=== PATIENT | female | born 2005 | race Two or more races ===

== ENCOUNTER 2025-03-07 03:26 | Emergency (ER) | payer OTHER ==
[~2025-03-07] VITALS: Ht 167.6 cm; Wt 49.9 kg
[2025-03-07] MEDS ORDERED: LIDOCAINE VISCOUS 2% UD 15 ML UDC ONE (06:23)
[2025-03-07] MEDS ORDERED: TDAP [DIPH/PERTUSSIS/TET] 0.5 ML VIAL IM ONE (06:24)
[2025-03-07] MEDS: TDAP [DIPH/PERTUSSIS/TET] 0.5 ML VIAL IM ONE (06:30)
[2025-03-07] MEDS ORDERED: LIDOCAINE 1%-EPI 1:100,000 50 ML VIAL IJ ONE (06:30)
[2025-03-07] MEDS: LIDOCAINE VISCOUS 2% UD 15 ML UDC MM ONE (06:31)
[2025-03-07 07:48] VITALS: BP 130/81; TEMP 98.5; O2SAT 99
== END 2025-03-07 07:48 | disposition home or self-care (01) ==
LOC: ER 03:35
DX: S01.511A Laceration without foreign body of lip, initial encounter (principal); Y04.0XXA Assault by unarmed brawl or fight, initial encounter; Y93.89 Activity, other specified; Y92.89 Other specified places as the place of occurrence of the external cause; Y99.9 Unspecified external cause status
CPT/HCPCS: 12011; 90471; 90715; 99283; J3490

== ENCOUNTER 2025-03-22 19:29 | Emergency (ER) | payer OTHER | END 2025-03-22 20:32 | disposition left against medical advice (07) | LOC: ER 19:33 | DX: Z48.02 Encounter for removal of sutures (principal); Z53.21 Procedure and treatment not carried out due to patient leaving prior to being seen by health care provider ==

== ENCOUNTER 2025-03-23 03:42 | Emergency (ER) | payer OTHER ==
[~2025-03-23] VITALS: Ht 167.6 cm; Wt 52.2 kg
[2025-03-23 03:50] VITALS: BP 113/74; TEMP 98.6; O2SAT 98
== END 2025-03-23 04:21 | disposition home or self-care (01) ==
LOC: ER 03:42
DX: S01.511D Laceration without foreign body of lip, subsequent encounter (principal); Z48.02 Encounter for removal of sutures; X58.XXXD Exposure to other specified factors, subsequent encounter